=== PATIENT | male | born 1980 | race Hispanic/Latino ===

== ENCOUNTER 2020-11-16 18:12 | Emergency (ER) | payer BC, SELFPAY ==
[2020-11-16 17:50] VITALS: BMI 30.8
[2020-11-16 18:13] VITALS: BP 148/84; PULSE 76; RESP 16; TEMP 36.5; O2SAT 99; BMI 32.1
--- NOTE | 2020-11-16 18:41 | US_ITS ---
INDICATION: LT LATERAL CALF PAIN EXAMINATION: US Venous Duplex LE Unilat / Limited TECHNIQUE: Sahu scale, pulse wave, and color flow Doppler imaging was performed of the lower extremity venous system. The left greater saphenous, common femoral, femoral, and popliteal veins were interrogated. COMPARISON: None. FINDINGS: There is normal compression, augmentation, and signal throughout the visualized deep lower extremity veins. No mass or fluid collection. US/Venous Duplex Imag/Limited/Uni IMPRESSION: No sonographic evidence of deep venous thrombosis of the left lower extremity. Electronically Signed: Venkatesh De La O MD at 19:44 EDT Tel , Service support ,
--- NOTE | 2020-11-16 19:00 | RAD_ITS ---
INDICATION: fall EXAMINATION/TECHNIQUE: X-RAY - LEFT XR Tibia/Fibula 2 Views COMPARISON: None. FINDINGS: Acute minimally displaced spiral fracture of the metadiaphysis of the proximal fibula. No blastic or lytic lesions. No degenerative changes are seen. Soft tissue swelling of the leg. RAD/Tibia & Fibula 2 Views IMPRESSION: Acute minimally displaced spiral fracture of the metadiaphysis of the proximal fibula. Electronically Signed: Venkatesh De La O MD at 19:44 EDT Tel , Service support ,
--- NOTE | 2020-11-16 19:03 | ED.DCSUM_ITS ---
- ER Visit Summary Date of Service: 11/16/20 Chief Complaint: Left lower extremity pain History of Present Illness: The patient is a 40 M presenting with left lower extremity pain. Patient states he fell while doing yard work over the weekend. He slipped and fell injuring his left leg. He has an abrasion to the anterior left leg. He did not hit his head or lose consciousness. He went to urgent care today and was sent to the ED to rule out DVT. He denies chest pain or shortness of breath. Denies other complaints. Physical Examination: Vitals are stable. Patient is afebrile. Alert no acute distress. HEENT exam is unremarkable. Neck is supple. Lungs are clear and equal bilaterally. Heart is regular rate and rhythm. Extremities abrasion anterior left lower extremity with no surrounding erythema or signs of infection. Mild lateral left calf tenderness. Normal distal p ulses. Skin is warm and dry. No focal neurologic deficit. Remainder of exam is unremarkable. Emergency Department Course and Treatment: Venous Doppler shows no evidence of DVT. Left tib-fib x-ray shows acute minimally displaced spiral fracture of the metadiaphysis of the proximal fibula. Discussed with Dr. Wyatt. Patient was placed in Ortho-Glass posterior splint. He will follow-up with orthopedics. Advised return to ED for worsening complaints. Disposition: Discharge home Impression: Left proximal fibula fracture This note was generated with [employer] dictation software. It may contain incorrect words, spelling, and punctuation that were not noted in review of the chart prior to signing ED Disposition - Plan for ED Patient: Instructions: Leg or Arm Fractures Referrals: Altagracia Wyatt DO [STAFF PHYSICIAN] - Care Physician,No Primary [Primary Care Provider] -
--- NOTE | 2020-11-16 21:09 | ED.DEP ---
ED Disposition - Plan for ED Patient: Instructions: Leg or Arm Fractures Referrals: Care Physician,No Primary [Primary Care Provider] - Altagracia Wyatt DO [STAFF PHYSICIAN] -
== END 2020-11-16 21:29 | disposition home or self-care (01) ==
PROVIDERS: Emergency Provider Emergency Medicine
DX: S82.832A Other fracture of upper and lower end of left fibula, initial encounter for closed fracture (principal); W01.0XXA Fall on same level from slipping, tripping and stumbling without subsequent striking against object, initial encounter; Y93.H2 Activity, gardening and landscaping; Y92.9 Unspecified place or not applicable; Y99.9 Unspecified external cause status
CPT/HCPCS: 29515; 73590; 93971; 99283